=== PATIENT | female | born 1995 | race Caucasian/White ===

== ENCOUNTER 2018-02-23 18:01 | Emergency (ER) | payer MEDICAID ==
[~2018-02-23] VITALS: Ht 157.5 cm; Wt 59.0 kg
[2018-02-23 18:15] VITALS: BP 133/72
--- NOTE | 2018-02-23 18:23 | NUR ---
PATIENT AMBULATED TO BED 5
--- NOTE | 2018-02-23 18:26 | NUR ---
PATIENT PRESENTS TO ED WITH THE CHIEF C/O FINGER PAIN. NOTED WITH REDNESS AND SWOLLEN SKIN AROUND THE NAIL ON 3RD, 4TH FINGER ON LEFT HAND AND THUMB, 3R AND 4TH FINGER ON RIGHT HAND. PT STATES THE PAIN STARTED ABOUT A MONTH AND HALF AGO. DENIES N/V/D; SKIN IS PINK/WARM/DRY; AAOX4 WITH EVEN AND STEADY GAIT; LUNGS CLEAR BL; HR EVEN AND REGULAR; PT DENIES ANY FEVER, CP, SOB, OR COUGH AT THIS TIME; PATIENT STATES PAIN OF 6/10 AT THIS TIME; VSS; PATIENT POSITIONED FOR COMFORT; HOB ELEVATED; BEDRAILS UP X2; BED DOWN. ER MD MADE AWARE OF PT STATUS.
[2018-02-23 18:59] VITALS: BP 130/76
== END 2018-02-23 19:00 | disposition home or self-care (01) ==
LOC: MED 18:01
DX: L03.012 Cellulitis of left finger (principal); L03.011 Cellulitis of right finger
CPT/HCPCS: 99283